=== PATIENT | female | born 1955 | race Hispanic/Latino ===

== ENCOUNTER 2018-01-18 15:14 | Emergency (ER) | payer BC ==
[2018-01-18 15:48] VITALS: BP 137/71; RESP 18; BMI 25.0
--- NOTE | 2018-01-18 15:54 | ED PDOC ---
Arrival/HPI - General Chief Complaint: Back Pain Time Seen by Provider: 01/18/18 15:49 Historian: Patient - History of Present Illness Narrative History of Present Illness (Text): 01/18/18 15:54 This 62 yo female with pmh RA, presents to this ED c/o left posterior mid and lower back pain x [employer]. Patient stated while walking in a bus, she slipped and fell down backwards. Patient believes she landed a a metal part for wheelchair lock. Patient is absolutely sure, she did not hit her head, and she does not have neck pain. Patient denies fever, sob, cp, abdominal pain, n/v, syncope, dizziness, weakness, paresthesias, GI/ incontinence, urinary retention, saddle anesthesia, hemoptysis, or abnormal gait. Time/Duration: Other (see hpi) Quality: Aching Context: Home Past Medical History - Provider Review Nursing Documentation Reviewed: Yes - Infectious Disease Hx of Infectious Diseases: None - Musculoskeletal/Rheumatological Hx Arthritis: Yes Hx Rheumatoid Arthritis: Yes - Psychiatric Hx Substance Use: No - Anesthesia Hx Anesthesia: No Family/Social History - Physician Review Nursing Documentation Reviewed: Yes Family/Social History: Other (noncontributory) Smoking Status: Heavy Smoker > 10 Cigarettes Daily Hx Alcohol Use: No Hx Substance Use: No Allergies/Home Meds Allergies/Adverse Reactions: Allergies No Known Allergies Allergy (Verified 01/18/18 15:37) Review of Systems - Review of Systems Constitutional: Normal. absent: Fatigue, Weight Change, Fevers Eyes: Normal ENT: Normal Respiratory: Normal. absent: SOB, Cough Cardiovascular: Normal. absent: Chest Pain, Palpitations Gastrointestinal: Normal. absent: Abdominal Pain, Nausea, Vomiting Genitourinary Female: Normal Musculoskeletal: Back Pain Skin: Normal Neurological: Normal Endocrine: Normal Hemo/Lymphatic: Normal Psychiatric: Normal Physical Exam Vital Signs Temp Pulse Resp BP Pulse Ox 01/18/18 15:34 97.6 F 82 18 137/71 98 Temperature: Afebrile Blood Pressure: Normal Pulse: Regular Respiratory Rate: Normal Appearance: Positive for: Well-Appearing, Non-Toxic, Comfortable Pain Distress: None Mental Status: Positive for: Alert and Oriented X 3 - Systems Exam Head: Present: Atraumatic, Normocephalic, Other (no raccoon sign. No parr sign) Pupils: Present: PERRL Extroacular Muscles: Present: EOMI. No: Entrapment Conjunctiva: Present: Normal Ears: Present: Normal, NORMAL TM, Normal Canal. No: Erythema, TM Bulging, Fluid , TM Perf Mouth: Present: Moist Mucous Membranes Neck: Present: Normal Range of Motion, Trachea Midline. No: Meningeal Signs, MIDLINE TENDERNESS, Paraspinal Tenderness, Lymphadenopathy Respiratory/Chest: Present: Clear to Auscultation, Good Air Exchange, Tender to Palpation ((+) mild tendrness on left posterior rib area. ). No: Respiratory Distress, Accessory Muscle Use, Wheezes, Retracting, Rhonchi Cardiovascular: Present: Regular Rate and Rhythm, Normal S1, S2. No: Murmurs Abdomen: Present: Normal Bowel Sounds. No: Tenderness, Distention, Peritoneal Signs, Rebound, Guarding Back: Present: Paraspinal Tenderness ((+) mild left paravertebral tenderness. No vertebral step off. No vertebral point tenderness). No: CVA Tenderness, Midline Tenderness Upper Extremity: Present: Normal Inspection, Normal ROM. No: Cyanosis, Edema Lower Extremity: Present: Normal Inspection, Normal ROM. No: Edema, CALF TENDERNESS Neurological: Present: GCS=15, CN II-XII Intact, Speech Normal, Motor Func Grossly Intact, Normal Sensory Function, Normal Cerebellar Funct Skin: Present: Warm, Dry, Normal Color. No: Rashes Psychiatric: Present: Alert, Oriented x 3, Normal Insight, Normal Concentration Medical Decision Making ED Course and Treatment: 01/18/18 16:06 Patient refused pain medication at this time. 01/18/18 17:53 Re-evaluation. Patient feels better. Discussed results and plan with patient who expresses understanding. All questions answered and there is agreement with the plan to discharge home with instructions. Patient stable for discharge. Return if symptoms persist or worsen. is at bedside Re-evaluation Time: 17:53 Reassessment Condition: Re-examined, Improved - RAD Interpretation Narrative RAD Interpretations (Text): 01/18/18 17:38 PROCEDURE: CT Chest without contrast HISTORY: left lower rib/thorax pain s/p fall COMPARISON: None. Te. FINDINGS: LUNGS: There is 4 millimeter pleural-based nodule versus focal pleural thickening noted at the left fissure image 71 series 3 and image 66 series 601. Mild emphysematous changes predominant in the upper lobe noted. No evidence of acute pathology in the lungs MEDIASTINUM: Unremarkable thoracic aorta. No aneurysm. Normal sized heart. Main pulmonary artery unremarkable. No vascular congestion. No lymphadenopathy. PLEURA: No pleural fluid. No pneumothorax. BONES: This buckle type fracture noted at the posterior aspect of the left 10th rib. UPPER ABDOMEN: Grossly unremarkable. OTHER FINDINGS: None. IMPRESSION: Buckle fracture at the posterior aspect of the left 10th rib. No evidence of acute pathology in the lungs. 4 millimeter pleural based nodule versus pleural thickening at the left fissure. If clinically warranted ( high risk patient) 6-12 months follow-up reassessment may be obtained. 01/18/18 17:39 PROCEDURE: CT Lumbar Spine without contrast HISTORY: left lower back pain FINDINGS: VERTEBRAE: There is a subtle levoscoliotic deformity related degenerative spondylosis seen at multiple levels but greatest at the L3-4 level which is the apex of the levoscoliosis. No acute fracture, destructive bony lesion or spondylolisthesis is appreciated. Prevertebral paraspinal soft tissues reflect only non aneurysmal atherosclerotic abdominal aorta. DISCS/SPINAL CANAL/NEURAL FORAMINA: L1-2: Unremarkable. L2-3: Facet joint arthropathy combines with generalized disc bulging flattening the ventral thecal sac and causing mild central canal stenosis a mild bilateral neural foraminal stenosis symmetrically. L3-4: A large generalized disc bulge is appreciated combining with facet joint arthropathy resulting in a moderate central canal stenosis mild bilateral neural foraminal stenosis greater the right than left sides. L4-5: A generalized disc bulge combines with a mild central disc herniation with cephalad extrusion combined with gross facet joint degenerative arthropathy causing severe central canal stenosis. Asymmetric disc bulging or lateral foraminal herniation causes moderate left neural foraminal stenosis. degenerative right neural foraminal stenosis identified. L5-S1: Marked facet joint degenerative arthropathy without stenosis appreciable. PARASPINAL SOFT TISSUES: As above. OTHER FINDINGS: None. IMPRESSION: 1. A large generalized disc bulge is identified with a small central disc herniation and potential left lateral foraminal herniated component causing severe central canal stenosis and moderate left neural foraminal stenosis. Gross facet joint degenerative arthropathy contributes to this pattern. Consider disc herniation is extruded cephalad. 2. Multilevel degenerative spinal stenosis included neural foramina as discussed above at L2-3 and L3-4. Radiology Orders: 01/18/18 15:55 CHEST W/O CONTRAST [CT] Stat 01/18/18 15:56 LUMBAR SPINE W/O CONTRAST [CT] Stat Disposition/Present on Arrival - Present on Arrival Any Indicators Present on Arrival: No History of DVT/PE: No History of Uncontrolled Diabetes: No Urinary Catheter: No History of Decub. Ulcer: No History Surgical Site Infection Following: None - Disposition Have Diagnosis and Disposition been Completed?: Yes Diagnosis: Closed rib fracture, Lung nodule, Bulging lumbar disc Disposition: HOME/ ROUTINE Disposition Time: 17:53 Patient Plan: Discharge Condition: GOOD Discharge Instructions (ExitCare): Rib Fractures in Adults, How to Use an Incentive Spirometer Additional Instructions: Call private doctor for follow up visit in 1-2 days. Take medication as instructed with food. Return to emergency if symptoms worsen. Do incentive spirometer every 2 hours for 10 minutes for at least [address] operate machinery the day that you take Percocet. Review CT scan result with your doctor in 1-2 days. Prescriptions: Famotidine [Pepcid] 40 mg PO DAILY #10 tablet Naproxen 500 mg PO BID PRN #14 tablet PRN Reason: Pain, Severe (8-10) oxyCODONE/Acetaminophen [Percocet 5/325 mg Tab] 1 tab PO Q6H PRN #10 tab PRN Reason: Pain, Severe (8-10) Referrals: Bonifacio Delgado MD [Primary Care Provider] - Follow up with primary Forms: [employer] (Lao)
--- NOTE | 2018-01-18 17:25 | CT ---
PROCEDURE: CT Chest without contrast HISTORY: left lower rib/thorax pain s/p fall COMPARISON: None. TECHNIQUE: Contiguous axial images were obtained through the chest without intravenous contrast enhancement. Sagittal and coronal reconstructions were performed. Radiation dose (DLP): 283.67 mGy-cm. This CT exam was performed using one or more of the following dose reduction techniques: Automated exposure control, adjustment of the mA and/or kV according to patient size, and/or use of iterative reconstruction technique. FINDINGS: LUNGS: There is 4 millimeter pleural-based nodule versus focal pleural thickening noted at the left fissure image 71 series 3 and image 66 series 601. Mild emphysematous changes predominant in the upper lobe noted. No evidence of acute pathology in the lungs MEDIASTINUM: Unremarkable thoracic aorta. No aneurysm. Normal sized heart. Main pulmonary artery unremarkable. No vascular congestion. No lymphadenopathy. PLEURA: No pleural fluid. No pneumothorax. BONES: This buckle type fracture noted at the posterior aspect of the left 10th rib. UPPER ABDOMEN: Grossly unremarkable. OTHER FINDINGS: None. IMPRESSION: Buckle fracture at the posterior aspect of the left 10th rib. No evidence of acute pathology in the lungs. 4 millimeter pleural based nodule versus pleural thickening at the left fissure. If clinically warranted ( high risk patient) 6-12 months follow-up reassessment may be obtained.
--- NOTE | 2018-01-18 17:39 | CT ---
PROCEDURE: CT Lumbar Spine without contrast HISTORY: left lower back pain COMPARISON: None. TECHNIQUE: Axial computed tomography images were obtained of the lumbar spine without the use of intravenous contrast. Coronal and sagittal reformatted images were created and reviewed. Radiation dose: Total exam DLP = 520.75 mGy-cm. This CT exam was performed using one or more of the following dose reduction techniques: Automated exposure control, adjustment of the mA and/or kV according to patient size, and/or use of iterative reconstruction technique. FINDINGS: VERTEBRAE: There is a subtle levoscoliotic deformity related degenerative spondylosis seen at multiple levels but greatest at the L3-4 level which is the apex of the levoscoliosis. No acute fracture, destructive bony lesion or spondylolisthesis is appreciated. Prevertebral paraspinal soft tissues reflect only non aneurysmal atherosclerotic abdominal aorta. DISCS/SPINAL CANAL/NEURAL FORAMINA: L1-2: Unremarkable. L2-3: Facet joint arthropathy combines with generalized disc bulging flattening the ventral thecal sac and causing mild central canal stenosis a mild bilateral neural foraminal stenosis symmetrically. L3-4: A large generalized disc bulge is appreciated combining with facet joint arthropathy resulting in a moderate central canal stenosis mild bilateral neural foraminal stenosis greater the right than left sides. L4-5: A generalized disc bulge combines with a mild central disc herniation with cephalad extrusion combined with gross facet joint degenerative arthropathy causing severe central canal stenosis. Asymmetric disc bulging or lateral foraminal herniation causes moderate left neural foraminal stenosis. degenerative right neural foraminal stenosis identified. L5-S1: Marked facet joint degenerative arthropathy without stenosis appreciable. PARASPINAL SOFT TISSUES: As above. OTHER FINDINGS: None. IMPRESSION: 1. A large generalized disc bulge is identified with a small central disc herniation and potential left lateral foraminal herniated component causing severe central canal stenosis and moderate left neural foraminal stenosis. Gross facet joint degenerative arthropathy contributes to this pattern. Consider disc herniation is extruded cephalad. 2. Multilevel degenerative spinal stenosis included neural foramina as discussed above at L2-3 and L3-4.
[2018-01-18] MEDS ORDERED: Oxycodone/Acetaminophen 5/325 mg Tab PO STA (17:52)
[2018-01-18 18:26] VITALS: PULSE 85; TEMP 98; O2SAT 99
== END 2018-01-18 18:27 | disposition home or self-care (01) ==
LOC: ED 15:14
DX: S22.32XA Fracture of one rib, left side, initial encounter for closed fracture (principal); W01.0XXA Fall on same level from slipping, tripping and stumbling without subsequent striking against object, initial encounter; Y92.811 Bus as the place of occurrence of the external cause; M51.26 Other intervertebral disc displacement, lumbar region; R91.8 Other nonspecific abnormal finding of lung field
CPT/HCPCS: 71250; 72131; 96372; 99283; J1885